=== PATIENT | male | born 1965 | race Caucasian/White ===

== ENCOUNTER 2022-08-21 00:11 | Emergency (ER) | payer SELFPAY ==
[~2022-08-21] VITALS: Ht 175.3 cm; Wt 75.0 kg
[2022-08-21 00:30] VITALS: BP 151/95
--- NOTE | 2022-08-21 01:35 | NUR ---
pt. refusing IV and blood work.
[2022-08-21] MEDS ORDERED: SULF1TAB49 PO (01:55)
[2022-08-21] MEDS ORDERED: sulfamethoxazole/trimethoprim DS (800/160mg) tablet PO ONE (01:55)
== END 2022-08-21 02:22 | disposition home or self-care (01) ==
LOC: ER 00:14
DX: T23.002A Burn of unspecified degree of left hand, unspecified site, initial encounter (principal); T20.00XA Burn of unspecified degree of head, face, and neck, unspecified site, initial encounter; T23.001A Burn of unspecified degree of right hand, unspecified site, initial encounter; F17.200 Nicotine dependence, unspecified, uncomplicated; Z79.2 Long term (current) use of antibiotics; X08.8XXA Exposure to other specified smoke, fire and flames, initial encounter; Y93.89 Activity, other specified; Y92.89 Other specified places as the place of occurrence of the external cause; Y99.8 Other external cause status
CPT/HCPCS: 99283